=== PATIENT | female | born 1965 | race Caucasian/White ===

== ENCOUNTER 2016-09-30 16:41 | Emergency (ER) | payer OTHER ==
[~2016-09-30] VITALS: Ht 152.4 cm; Wt 139.8 kg
[~2016-09-30 16:41] MED LIST: ARTHRITIS PAIN650 M1 PO; BENICAR20 MG PO; CARDIZEM CD,CA240 MG PO; CARDIZEM CD240 MG PO; CITRACAL D + H1 EACH; CITRACAL D + H1 EACH PO; CLARITIN10 M3 PO; CLARITIN10 MG PO; CRESTOR10 MG; DAILY VALUE1 EACH PO; ERGOCALCIF50000 UNIT PO; FELDENE20 MG PO; FISH OIL OMEGA1 EACH; FLONASE16 G1; FUROSEMIDE40 MG PO; GEMFIBROZIL600 MG; GEMFIBROZIL600 MG PO; GLUCOPHAGE XR750 MG; GLUCOTROL XL5 MG; LANTUS 3 M100 UNITS1 SC; LASIX40 MG PO; LISINOPRIL20 MG PO; METFORMIN HCL750 MG PO; METOPROLOL SUCC50 MG PO; MULTI-DAY VITA1 EACH; NASAL DECONGEST30 M1 BOTH NARES; NOVOLOG 10100 UNITS/ SC; PRAVASTATIN SOD40 MG PO; PROZAC10 MG PO; TOPROL XL100 MG PO; TYLENOL ARTHRI650 M2 PO; VANCOMYCIN1 GM/150 M IV; VENTOLIN HFA18 GM IH; VICTOZA 2-0.6 MG/0.1 SC; VITAMIN D250000 UNIT; WOMEN'S DAILY1 EAC1 PO; ZOFRAN4 MG PO
[2016-09-30 17:17] LABS: HEMATOCRIT 33.6 % (36.0-46.0); MCH 23.3 PG (29.0-34.0); MCHC 29.8 G/DL (30.0-36.0); MCV 78.1 FL (83-99); MEAN PLAT.VOLUME 8.7 uM^3 (9.5-12.4); PLATELET COUNT 384 K/uL (156-360); RBC DIS.WIDTH-CV 18.6 % (11.8-14.6); RBC DIS.WIDTH-SD 52.2 % (39-53); WHITE BLOOD COUNT 9.5 K/uL (4.1-10.2)
[2016-09-30 17:31] LABS: CHLORIDE 104 mEq/L (99-109); POTASSIUM 4.5 mEq/L (3.7-5.4); SODIUM 141 mEq/L (136-147)
[2016-09-30 17:32] LABS: GLUCOSE 107 mg/dL (70-99)
[2016-09-30 17:34] LABS: ANION GAP 13 MEQ/L (2-14)
[2016-09-30 17:36] LABS: GFR ESTIMATE (CALCULATED) > 59 mL/min/
[2016-09-30 17:37] LABS: UREA NITROGEN (BUN) 16 mg/dL (9-23)
[2016-09-30 17:41] LABS: ADD MIUA? YES; BILIRUBIN NEGATIVE; BLOOD MODERATE; COLOR STRAW ((YELLOW)); GLUCOSE (STRIP) NEGATIVE; KETONES NEGATIVE; LEUKOCYTES TRACE; NITRITE NEGATIVE; PROTEIN (STRIP) 30; SPECIFIC GRAVITY 1.008 (1.000-1.030); UROBILINOGEN 0.2 MG/DL (0.2-1.0)
[2016-09-30 17:45] LABS: BACTERIA RARE /HPF; EPITHELIAL CELLS RARE /HPF; MUCUS NONE SEEN /LPF; RED BLOOD CELLS 0-5 /HPF (0-5); UCUL ADDED? NO; WHITE BLOOD CELLS 0-5 /HPF (0-5)
[2016-09-30 17:48] LABS: QUANTITATIVE HCG < 4.0 MIU/ML
[2016-09-30] MEDS ORDERED: MOTRIN800 MG PO (19:34)
[2016-09-30] MEDS ORDERED: ZOFRAN ODT4 MG PO (19:34)
[2016-09-30] MEDS ORDERED: FLOMAX0.4 MG PO (19:34)
[2016-09-30 19:55] VITALS: BP 143/63
== END 2016-09-30 19:57 | disposition home or self-care (01) ==
LOC: EME 16:41
DX: N20.0 Calculus of kidney (principal); E78.5 Hyperlipidemia, unspecified; E11.9 Type 2 diabetes mellitus without complications; I10 Essential (primary) hypertension; Z87.442 Personal history of urinary calculi; Z79.84 Long term (current) use of oral hypoglycemic drugs; Z88.2 Allergy status to sulfonamides; Z88.8 Allergy status to other drugs, medicaments and biological substances
CPT/HCPCS: 74176; 80048; 81003; 84702; 85027; 99281; 99284; J1885

== ENCOUNTER 2017-03-26 21:41 | Inpatient (IN) | payer OTHER ==
[~2017-03-26] VITALS: Ht 152.4 cm; Wt 136.0 kg
[~2017-03-26 21:41] MED LIST changes: +CRESTOR20 MG PO; +DOXAZOSIN MESYLA2 MG PO; +FLOMAX0.4 MG PO; +IBUPROFEN800 MG PO; +MOTRIN800 MG PO; +TRESIBA FL200 UNIT/1 SC; +VITAMIN D5000 UNI1 PO; +ZOFRAN ODT4 MG PO
[2017-03-27] MEDS ORDERED: OMEPRAZOLE40 M1 PO (11:40)
[2017-03-27] MEDS ORDERED: MAGNESIUM250 MG PO (11:41)
[2017-03-27] MEDS ORDERED: HYDROCODON-ACE1 EAC7 PO (11:42)
[2017-03-27] MEDS ORDERED: LOMAIRA8 MG PO (11:43)
[2017-03-27 11:46] VITALS: BP 132/62
[2017-03-27 11:48] LABS: POINT-OF-CARE METER ID UU14174212
[2017-03-27 15:13] LABS: POINT-OF-CARE METER ID UU13113675
[2017-03-27 17:44] VITALS: BP 123/56
[2017-03-27 17:56] LABS: POINT-OF-CARE METER ID UU14162508
[2017-03-27 19:10] VITALS: BP 122/58
[2017-03-27 20:13] LABS: HEMATOCRIT 30.3 % (36.0-46.0); MCH 24.5 PG (29.0-34.0); MCV 81.7 FL (83-99); MEAN PLAT.VOLUME 8.7 uM^3 (9.5-12.4); PLATELET COUNT 296 K/uL (156-360); RBC DIS.WIDTH-CV 17.7 % (11.8-14.6); RBC DIS.WIDTH-SD 51.5 % (39-53); RED BLOOD COUNT 3.71 M/uL (3.80-5.20)
[2017-03-27 20:39] LABS: ANION GAP 10 MEQ/L (2-14); CHLORIDE 97 MEQ/L (99-109); GFR ESTIMATE (CALCULATED) 56 mL/min/; GLUCOSE 165 mg/dL (70-99); POTASSIUM 5.5 MEQ/L (3.7-5.4); SAMPLE HEMOLYSIS CHECK 0; SAMPLE ICTERIC CHECK 0; SAMPLE LIPEMIA CHECK 0; SODIUM 134 MEQ/L (136-147); UREA NITROGEN (BUN) 28 mg/dL (9-23)
[2017-03-27 22:30] VITALS: BP 132/60
[2017-03-27 23:53] LABS: POINT-OF-CARE METER ID UU14314084
[2017-03-28 02:50] VITALS: BP 131/58
[2017-03-28 05:57] LABS: POINT-OF-CARE METER ID UU14314084
[2017-03-28 06:59] LABS: HEMATOCRIT 27.6 % (36.0-46.0); MCH 23.8 PG (29.0-34.0); MCHC 29.3 G/DL (30.0-36.0); MCV 81.2 FL (83-99); MEAN PLAT.VOLUME 8.8 uM^3 (9.5-12.4); PLATELET COUNT 294 K/uL (156-360); RBC DIS.WIDTH-CV 17.7 % (11.8-14.6); RBC DIS.WIDTH-SD 51.3 % (39-53); WHITE BLOOD COUNT 13.9 K/uL (4.1-10.2)
[2017-03-28 07:28] LABS: ANION GAP 10 MEQ/L (2-14); CHLORIDE 98 MEQ/L (99-109); GFR ESTIMATE (CALCULATED) > 59 mL/min/; GLUCOSE 167 mg/dL (70-99); POTASSIUM 5.4 MEQ/L (3.7-5.4); SAMPLE HEMOLYSIS CHECK 0; SAMPLE ICTERIC CHECK 0; SAMPLE LIPEMIA CHECK 0; SODIUM 136 MEQ/L (136-147); UREA NITROGEN (BUN) 29 mg/dL (9-23)
[2017-03-28 07:58] VITALS: BP 136/58
[2017-03-28] MEDS ORDERED: LOVENOX40 MG/0.4 SC (09:26)
[2017-03-28 11:21] LABS: POINT-OF-CARE METER ID UU14162508
[2017-03-28 12:04] VITALS: BP 125/56
[2017-03-28 16:26] LABS: POINT-OF-CARE METER ID UU14162508
[2017-03-28 17:15] VITALS: BP 126/66
[2017-03-28 19:00] VITALS: BP 121/58
[2017-03-28 21:42] LABS: POINT-OF-CARE METER ID UU14162508
[2017-03-28 22:32] VITALS: BP 108/53
[2017-03-29 02:35] VITALS: BP 112/56
[2017-03-29 06:18] LABS: POINT-OF-CARE METER ID UU14162508
[2017-03-29 07:35] LABS: HEMATOCRIT 24.1 % (36.0-46.0); MCH 24.3 PG (29.0-34.0); MCHC 30.7 G/DL (30.0-36.0); MEAN PLAT.VOLUME 9.2 uM^3 (9.5-12.4); PLATELET COUNT 327 K/uL (156-360); RBC DIS.WIDTH-CV 17.9 % (11.8-14.6); RBC DIS.WIDTH-SD 51.1 % (39-53); RED BLOOD COUNT 3.05 M/uL (3.80-5.20); WHITE BLOOD COUNT 10.5 K/uL (4.1-10.2)
[2017-03-29 08:17] VITALS: BP 125/58
[2017-03-29 08:33] LABS: ANION GAP 8 MEQ/L (2-14); CHLORIDE 96 MEQ/L (99-109); GFR ESTIMATE (CALCULATED) > 59 mL/min/; GLUCOSE 180 mg/dL (70-99); POTASSIUM 5.3 MEQ/L (3.7-5.4); SAMPLE HEMOLYSIS CHECK 1; SAMPLE ICTERIC CHECK 0; SAMPLE LIPEMIA CHECK 0; SODIUM 132 MEQ/L (136-147); UREA NITROGEN (BUN) 27 mg/dL (9-23)
[2017-03-29] MEDS ORDERED: TRAMADOL HCL50 MG PO (09:32)
== END 2017-03-29 11:18 | disposition home or self-care (01) | DRG 742 ==
LOC: ENRESERV 21:41 → 2SOUTH 03-27 09:35 → ENRESERV 03-27 15:57 → 2EAST 03-27 16:42
PROVIDERS: Obstetrics & Gynecology Gynecologic Oncology
DX: D25.9 Leiomyoma of uterus, unspecified (principal); Z68.43 Body mass index [BMI] 50.0-59.9, adult; N93.8 Other specified abnormal uterine and vaginal bleeding; N83.201 Unspecified ovarian cyst, right side; E66.01 Morbid (severe) obesity due to excess calories; D50.9 Iron deficiency anemia, unspecified; E53.9 Vitamin B deficiency, unspecified; F43.23 Adjustment disorder with mixed anxiety and depressed mood; K21.0 Gastro-esophageal reflux disease with esophagitis; M19.90 Unspecified osteoarthritis, unspecified site; J45.909 Unspecified asthma, uncomplicated; E78.2 Mixed hyperlipidemia; I87.2 Venous insufficiency (chronic) (peripheral); G47.33 Obstructive sleep apnea (adult) (pediatric)
CPT/HCPCS: 80048; 82948; 85027; 86850; 86900; 86901; 86920; 88305; 88307; 94799; 99202; J0330; J0690; J1170; J1650; J1815; J1885; J2405; J2710; J2765; J3010; J7120

== ENCOUNTER → 2017-12-23 | Outpatient (CLI) | payer BC, OTHER ==
[~2017-12-23] MED LIST changes: +HYDROCODON-ACE1 EAC7 PO; +LOMAIRA8 MG PO; +LOVENOX40 MG/0.4 SC; +MAGNESIUM250 MG PO; +OMEPRAZOLE40 M1 PO; +TRAMADOL HCL50 MG PO
== END | disposition home or self-care (01) ==
LOC: RAD 14:24
DX: C50.412 Malignant neoplasm of upper-outer quadrant of left female breast (principal)
CPT/HCPCS: 71046

== ENCOUNTER 2017-12-27 20:47 | Emergency (ER) | payer BC, OTHER ==
[~2017-12-27] VITALS: Ht 152.4 cm; Wt 138.1 kg
[2017-12-27 21:39] LABS: BASOPHIL (%) 0.6 % (0-1); BASOPHIL COUNT 0.1 K/uL (0-0.1); EOSINOPHIL (%) 3.6 % (0-5); EOSINOPHIL COUNT 0.3 K/uL (0-0.3); HEMATOCRIT 31.1 % (36.0-46.0); HEMOGLOBIN 9.6 G/DL (11.9-15.5); IMMATURE GRANULOCYTE (%) 0.2 % (0.0-0.7); LYMPHOCYTE (%) 17.9 % (15-42); LYMPHOCYTE COUNT 1.5 K/uL (1.0-2.8); MCH 26.4 PG (29.0-34.0); MCHC 30.9 G/DL (30.0-36.0); MCV 85.4 FL (83-99); MONOCYTE (%) 8.6 % (3-12); MONOCYTE COUNT 0.7 K/uL (0-0.8); NEUTROPHIL (%) 69.1 % (45-76); NEUTROPHIL COUNT 5.8 K/uL (1.8-6.4); PLATELET COUNT 270 K/uL (156-360); RBC DIS.WIDTH-CV 16.8 % (11.8-14.6); RBC DIS.WIDTH-SD 52.6 % (39-53); RED BLOOD COUNT 3.64 M/uL (3.80-5.20); WHITE BLOOD COUNT 8.3 K/uL (4.1-10.2)
[2017-12-27 21:50] LABS: CHLORIDE 106 mEq/L (99-109); POTASSIUM 5.1 mEq/L (3.7-5.4); SODIUM 138 mEq/L (136-147)
[2017-12-27 21:51] LABS: GLUCOSE 219 mg/dL (70-99)
[2017-12-27 21:55] LABS: CREATININE 1.7 mg/dL (0.6-1.3); GFR ESTIMATE (CALCULATED) 34 mL/min/
[2017-12-27 21:56] LABS: UREA NITROGEN (BUN) 47 mg/dL (9-23)
[2017-12-27 22:28] VITALS: BP 170/85
== END 2017-12-27 22:31 | disposition home or self-care (01) ==
LOC: EME 20:47
PROVIDERS: Emergency Medicine
DX: Z03.89 Encounter for observation for other suspected diseases and conditions ruled out (principal); I10 Essential (primary) hypertension; E11.9 Type 2 diabetes mellitus without complications; J45.909 Unspecified asthma, uncomplicated; E78.5 Hyperlipidemia, unspecified; C50.919 Malignant neoplasm of unspecified site of unspecified female breast; F32.9 Major depressive disorder, single episode, unspecified; Z86.73 Personal history of transient ischemic attack (TIA), and cerebral infarction without residual deficits; Z87.442 Personal history of urinary calculi; Z87.19 Personal history of other diseases of the digestive system; Z79.4 Long term (current) use of insulin; Z88.2 Allergy status to sulfonamides
CPT/HCPCS: 80048; 85025; 93005; 99281; 99284

== ENCOUNTER 2018-01-09 14:22 | Emergency (ER) | payer BC, OTHER ==
[~2018-01-09] VITALS: Ht 152.4 cm; Wt 138.1 kg
[~2018-01-09 14:22] MED LIST changes: +ALDACTONE25 MG PO; +CO Q-1010 MG PO; +IBUPROFEN PM C1 EACH PO; -IBUPROFEN800 MG PO; +MOTRIN600 MG PO; +SUPER B MAXI C0.4 MG PO
[2018-01-09 16:16] VITALS: BP 159/87
== END 2018-01-09 16:18 | disposition home or self-care (01) ==
LOC: EME 14:22
DX: S80.01XA Contusion of right knee, initial encounter (principal); W22.09XA Striking against other stationary object, initial encounter; M17.0 Bilateral primary osteoarthritis of knee; I10 Essential (primary) hypertension; E78.5 Hyperlipidemia, unspecified; E11.9 Type 2 diabetes mellitus without complications; Z79.4 Long term (current) use of insulin; Z85.3 Personal history of malignant neoplasm of breast; Z88.2 Allergy status to sulfonamides
CPT/HCPCS: 73564; 99281; 99283

== ENCOUNTER 2018-01-13 05:20 | Day surgery (SDC) | payer BC, OTHER ==
[~2018-01-13] VITALS: Ht 152.4 cm; Wt 137.9 kg
[2018-01-13 06:35] VITALS: BP 147/87
[2018-01-13] MEDS ORDERED: NORCO 5/3251 TABLET PO (13:11)
[2018-01-13 15:35] VITALS: BP 130/58
[2018-01-13 16:35] VITALS: BP 127/60
[2018-01-13 17:30] VITALS: BP 132/63
== END 2018-01-13 17:45 | disposition home or self-care (01) ==
LOC: SDC 05:20 → NUC 07:00 → SDC 07:00 → NUC 09:00 → SDC 17:45
PROVIDERS: Surgery
DX: C50.412 Malignant neoplasm of upper-outer quadrant of left female breast (principal); Z17.0 Estrogen receptor positive status [ER+]; E78.2 Mixed hyperlipidemia; I10 Essential (primary) hypertension; E11.9 Type 2 diabetes mellitus without complications; J45.909 Unspecified asthma, uncomplicated; K21.9 Gastro-esophageal reflux disease without esophagitis; E66.01 Morbid (severe) obesity due to excess calories; Z68.43 Body mass index [BMI] 50.0-59.9, adult; G47.30 Sleep apnea, unspecified; Z88.8 Allergy status to other drugs, medicaments and biological substances
CPT/HCPCS: 78195; 78999; 82948; 88305; 88307; 88341 TC; 88342 TC; 94002; A9541; J0330; J0690; J1885; J2250; J2405; J2765; J3010; S0020